=== PATIENT | male | born 1985 | race Caucasian/White ===

== ENCOUNTER 2020-09-03 05:01 | Emergency (ER) | payer BC ==
[~2020-09-03] VITALS: Ht 185.4 cm; Wt 77.1 kg
[2020-09-03] MEDS ORDERED: CLINDAMYCIN HCL 150 MG CAPSULE PO ONE (05:30)
[2020-09-03] MEDS ORDERED: CLINDAMYCIN HCL 300 MG CAPSULE ONE (05:32)
[2020-09-03 05:34] VITALS: BP 157/99
--- NOTE | 2020-09-03 05:34 | NUR ---
Patient discharged to home in stable condition. Written and verbal after care instructions given. Patient verbalizes understanding of instructions. Stressed follow up or return to ER for worsening s/s.
== END 2020-09-03 05:35 | disposition home or self-care (01) ==
LOC: ER 05:09
DX: K08.89 Other specified disorders of teeth and supporting structures (principal); F17.210 Nicotine dependence, cigarettes, uncomplicated; F41.9 Anxiety disorder, unspecified
CPT/HCPCS: A4663